=== PATIENT | male | born 1990 | race Caucasian/White ===

== ENCOUNTER 2023-01-11 07:50 | Emergency (ER) | payer OTHER ==
[2023-01-11] MEDS: Ondansetron 4 MG/2 ML SDV IVPUSH ONE ×2 (08:00→08:45)
[2023-01-11] MEDS ORDERED: Ketorolac 30 MG/ML SDV IVPUSH ONE (08:41)
[2023-01-11] MEDS ORDERED: Sodium Chloride 0.9% 1,000 ML IV ONE ×2 (08:41→09:47)
[2023-01-11] MEDS ORDERED: Sodium Chloride 0.9% 10 ML Syringe FLUSH PRN (08:43)
[2023-01-11 08:46] LABS: BASOPHILS ABSOLUTE AUTO 0.04 10^3/uL (0.00-0.50); BASOPHILS PERCENT AUTO 0.5 % (0-1); EOSINOPHILS ABSOLUTE AUTO 0.13 10^3/uL (0.00-1.50); EOSINOPHILS PERCENT AUTO 1.6 % (0-6); HEMATOCRIT 41.8 % (42.0-52.0); HEMOGLOBIN 14.7 g/dL (14.0-18.0); IMMATURE GRAN ABSOLUTE AUTO 0.03 10^3/uL (0.00-0.49); IMMATURE GRAN PERCENT AUTO 0.4 % (0.0-4.9); LYMPHOCYTES ABSOLUTE AUTO 2.43 10^3/uL (0.60-5.00); LYMPHOCYTES PERCENT AUTO 29.2 % (24-44); MEAN CORPUSCULAR HEMOGLOBIN 29.4 pg (27.0-32.0); MEAN CORPUSCULAR HGB CONC 35.2 g/dL (32.0-36.0); MEAN CORPUSCULAR VOLUME 83.6 fL (83.0-97.0); MONOCYTES ABSOLUTE AUTO 0.72 10^3/uL (0.00-1.50); MONOCYTES PERCENT AUTO 8.7 % (0-10); NEUTROPHILS ABSOLUTE AUTO 4.97 x10^3/uL (1.80-8.00); NEUTROPHILS PERCENT AUTO 59.6 % (41-71); PLATELET COUNT,PLT 197 10^3/uL (150-400); WHITE BLOOD CELL COUNT,WBC 8.3 10^3/uL (4.0-11.0)
[2023-01-11 08:47] LABS: APPEARANCE,URINE CLEAR (CLEAR); BILIRUBIN,URINE NEGATIVE (NEGATIVE); COLOR,URINE YELLOW (YELLOW); GLUCOSE,URINE NEGATIVE (NEGATIVE); KETONES,URINE NEGATIVE (NEGATIVE); LEUKOCYTE ESTERASE,URINE NEGATIVE (NEGATIVE); NITRITE,URINE NEGATIVE (NEGATIVE); OCCULT BLOOD,URINE NEGATIVE (NEGATIVE); PROTEIN,URINE NEGATIVE (NEGATIVE); UROBILINOGEN,URINE 0.2 EU/dL (0.2-1.0)
[2023-01-11 08:49] LABS: ALANINE AMINOTRANSFERASE,ALT 35 U/L (12-78); ALBUMIN 3.7 g/dL (3.4-5.0); ALKALINE PHOSPHATASE 89 U/L (46-116); AMYLASE 45 U/L (25-115); ASPARTATE AMNIOTRANSFERASE,AST 17 U/L (15-37); BLOOD UREA NITROGEN,BUN 15 mg/dL (7-18); CALCIUM 8.9 mg/dL (8.4-10.1); CREATININE 1.1 mg/dL (0.7-1.3); ESTIMATED GFR 92 mL/min (>=60)
[2023-01-11 08:50] LABS: BILIRUBIN TOTAL 0.3 mg/dL (0.0-1.0); CARBON DIOXIDE,CO2 26 mmol/L (21-32); CHLORIDE,CL 108 mEq/L (98-106); GLUCOSE RANDOM 106 mg/dL (75-99); LIPASE 35 U/L (16-77); SODIUM,NA 144 mEq/L (136-145)
[2023-01-11] MEDS ORDERED: HYDROmorphone 1 MG/ML Syringe IVPUSH ONE (09:09)
[2023-01-11] MEDS ORDERED: Morphine 4 MG/ML VIAL IVPUSH ONE (09:19)
[2023-01-11] MEDS ORDERED: Iopamidol 755 Mg/ML 100 ML Bottle IVPUSH ONE (09:47)
[2023-01-11] MEDS ORDERED: Tamsulosin 0.4 MG Cap.ER PO ONE (10:24)
[2023-01-11] MEDS ORDERED: Acetaminophen/HYDROcodone 325-5 MG Tab PO ONE (11:37)
[2023-01-11] MEDS ORDERED: Take Home: Ondansetron 4 MG Tab.DIS, 2 Tab Pack PO ONE (11:49)
== END 2023-01-11 12:03 | disposition home or self-care (01) ==
LOC: CC.ED 07:50
DX: N13.2 Hydronephrosis with renal and ureteral calculous obstruction (principal)
CPT/HCPCS: 36415; 74170; 80053; 81003; 82150; 83690; 85025; 96361; 96374; 96375; 96376; 99284; A9270; J1170; J1885; J2270; J2405; J7030; Q9967